=== PATIENT | male | born 1975 | race Caucasian/White ===

== ENCOUNTER 2017-10-19 21:21 | Emergency (ER) | payer OTHER ==
[2017-10-19] MEDS: Ondansetron 4 MG/2 ML SDV IVPUSH ONE (22:18)
[2017-10-19] MEDS: Sodium Chloride 0.9% 1,000 ML IV SCH (22:18)
[2017-10-19] MEDS: Famotidine 20 MG/2 ML SDV IVPUSH ONE (22:19)
[2017-10-19] MEDS: Sodium Chloride 0.9% 10 ML Syringe FLUSH PRN (22:19)
--- NOTE | 2017-10-19 23:15 | EDM.PDOC ---
ED HPI GENERAL MEDICAL PROBLEM - General Chief Complaint: Respiratory Problem Stated Complaint: STOMACH AND HEAD HURT Time Seen by Provider: 10/19/17 21:36 Source of Information: Reports: Patient, RN Notes Reviewed - History of Present Illness INITIAL COMMENTS - FREE TEXT/NARRATIVE: 42-year-old male has not been feeling well for about a week with a lot of nasal and sinus congestion. This has been primarily clear nasal drainage. He has had a fair amount of coughing with that as well, nonproductive. No obvious fever or chills with this. He then developed some mild upper abdominal discomfort yesterday that continues intermittently today. This late afternoon he became nauseated and has vomited several times. He did have one episode of diarrhea yesterday, loose stools today. No major abdominal pain or cramping at this time. No history of known ulcer disease or other prior GI problems. Headache Pain Score (Numeric/FACES): 7 Abdominal Pain Score (Numeric/FACES): 6 - Related Data Allergies Allergy/AdvReac Type Severity Reaction Status Date / Time strawberry Allergy Anaphylactic Verified 10/19/17 21:36 Shock bees Allergy Anaphylactic Uncoded 10/19/17 21:36 Shock IVP dye Allergy Hives Uncoded 10/19/17 21:36 Home Meds: Home Meds Bp Pill? 10/19/17 [History] Cephalexin 500 mg PO QID #30 capsule 10/19/17 [Rx] Cholecalciferol (Vitamin D3) [Vitamin D3] 2,000 unit PO DAILY 10/19/17 [History] Ondansetron [Zofran ODT] 4 mg PO Q6H PRN #7 tab.dis 10/19/17 [Rx] PARoxetine [Paxil] 40 mg PO DAILY 10/19/17 [History] Past Medical History Cardiovascular History: Reports: Hypertension Psychiatric History: Reports: Anxiety, Depression Social & Family History - Tobacco Use Smoking Status *Q: Never Smoker ED ROS GENERAL - Review of Systems Review Of Systems: See Below Constitutional: Denies: Fever, Chills HEENT: Reports: Rhinitis, Sinus Problem Respiratory: Reports: Cough. Denies: Shortness of Breath, Sputum Cardiovascular: Denies: Chest Pain GI/Abdominal: Reports: Abdominal Pain, Nausea, Vomiting Musculoskeletal: Denies: Shoulder Pain, Arm Pain, Back Pain Skin: Reports: No Symptoms Neurological: Reports: No Symptoms ED EXAM, GENERAL - Physical Exam Exam: See Below General Appearance: Alert, No Apparent Distress Eye Exam: Bilateral Eye: PERRL Throat/Mouth: Other Head: Atraumatic (Oral mucosa is dry) Neck: Supple Respiratory/Chest: No Respiratory Distress, Lungs Clear, Normal Breath Sounds Cardiovascular: Regular Rate, Rhythm GI/Abdominal: Soft, Non-Tender. No: Guarding, Rebound Extremities: Normal Inspection, Normal Range of Motion Neurological: Alert, Oriented, No Motor/Sensory Deficits Skin Exam: Warm, Dry, Normal Color Course - Vital Signs Last Recorded V/S: Last Vital Signs Temp 98.6 F 10/19/17 21:37 Pulse 88 10/19/17 21:37 Resp 18 10/19/17 21:37 BP 159/98 H 10/19/17 21:37 Pulse Ox 97 10/19/17 21:37 - Orders/Labs/Meds Orders: Active Orders 24 hr Category Date Time Status Peripheral IV Care [RC] . DIRECTED Care 10/19/17 22:06 Active Peripheral IV Insertion Adult [OM.PC] Stat Oth 10/19/17 22:04 Ordered Labs: Laboratory Tests 10/19/17 10/19/17 Range/Units 22:15 22:15 WBC 6.03 (4.23-9.07) K/mm3 RBC 5.07 (4.63-6.08) M/mm3 Hgb 13.9 (13.7-17.5) gm/L Hct 42.2 (40.1-51.0) % MCV 83.2 (79.0-92.2) fl MCH 27.4 (25.7-32.2) pg MCHC 32.9 (32.2-35.5) g/dl RDW Std Deviation 42.9 (35.1-43.9) fL Plt Count 164 (163-337) K/mm3 MPV 10.0 (9.4-12.3) fl Neut % (Auto) 60.7 (34.0-67.9) % Lymph % (Auto) 27.2 (21.8-53.1) % [place] % (Auto) 8.6 (5.3-12.2) % Eos % (Auto) 2.3 (0.8-7.0) Baso % (Auto) 0.7 (0.1-1.2) % Neut # (Auto) 3.66 (1.78-5.38) K/mm3 Lymph # (Auto) 1.64 (1.32-3.57) K/mm3 [place] # (Auto) 0.52 (0.30-0.82) K/mm3 Eos # (Auto) 0.14 (0.04-0.54) K/mm3 Baso # (Auto) 0.04 (0.01-0.08) K/mm3 Sodium 140 (136-145) mEq/L Potassium 3.6 (3.5-5.1) mEq/L Chloride 105 (98-107) mEq/L Carbon Dioxide 25 (21-32) mEq/L Anion Gap 13.6 (5-15) BUN 14 (7-18) mg/dL Creatinine 0.9 (0.7-1.3) mg/dL Est Cr Clr Drug Dosing 119.75 mL/min Estimated GFR (MDRD) > 60 (>60) mL/min BUN/Creatinine Ratio 15.6 (14-18) Glucose 138 H (74-106) mg/dL Calcium 9.0 (8.5-10.1) mg/dL Total Bilirubin 0.2 (0.2-1.0) mg/dL AST 94 H (15-37) U/L ALT 117 H (16-63) U/L Alkaline Phosphatase 63 (46-116) U/L Total Protein 7.2 (6.4-8.2) g/dl Albumin 3.7 (3.4-5.0) g/dl Globulin 3.5 gm/dL Albumin/Globulin Ratio 1.1 (1-2) Meds: Medications Discontinued Medications Generic Name Dose Route Start Last Admin Trade Name Freq PRN Reason Stop Dose Admin Famotidine 20 mg 10/19/17 22:05 10/19/17 22:19 Pepcid IVPUSH 10/19/17 22:06 20 mg ONETIME ONE Administration Sodium Chloride 1,000 mls @ 999 mls/hr 10/19/17 22:15 10/19/17 22:18 Normal Saline IV 999 mls/hr ONETIME SAMANTHA Administration Ondansetron HCl 4 mg 10/19/17 22:05 10/19/17 22:18 Zofran IVPUSH 10/19/17 22:06 4 mg ONETIME ONE Administration Sodium Chloride 10 ml 10/19/17 22:05 10/19/17 22:19 Saline Flush FLUSH 10 ml ASDIRECTED PRN Administration Keep Vein Open Departure - Departure Time of Disposition: 23:11 Disposition: Home, Self-Care 01 Clinical Impression: Viral upper respiratory infection Abdominal pain Qualifiers: Abdominal location: upper abdomen, unspecified Qualified Code(s): R10.10 - Upper abdominal pain, unspecified Vomiting Qualifiers: Vomiting type: unspecified Vomiting Intractability: non-intractable Nausea presence: with nausea Qualified Code(s): R11.2 - Nausea with vomiting, unspecified - Discharge Information Prescriptions: Cephalexin 500 mg PO QID #30 capsule Ondansetron [Zofran ODT] 4 mg PO Q6H PRN #7 tab.dis PRN Reason: Nausea/Vomiting Instructions: Abdominal Pain, Adult, Nausea and Vomiting, Adult, Upper Respiratory Infection, Adult, Chzn-mg-Cvop Referrals: El Hilton MD [Primary Care Provider] - Forms: ED Department Discharge Additional Instructions: Clear liquids until tomorrow afternoon as discussed, than very careful bland diet as tolerated, zofran ODT every 6-8 hours if needed for any further nausea or vomiting, the sinus congestion at this time appears to be viral, if that does not get much better within 5-7 days or if you start blowing a lot of yellow , green or other colored discharge than fill the antibiotic for cephalexin that has been provided to you at this time - My Orders Last 24 Hours: My Active Orders 10/19/17 22:04 Peripheral IV Insertion Adult [OM.PC] Stat 10/19/17 22:06 Peripheral IV Care [RC] . DIRECTED - Assessment/Plan Last 24 Hours: My Active Orders 10/19/17 22:04 Peripheral IV Insertion Adult [OM.PC] Stat 10/19/17 22:06 Peripheral IV Care [RC] . DIRECTED
== END 2017-10-19 23:36 | disposition home or self-care (01) ==
LOC: JD.ED 21:21
DX: J06.9 Acute upper respiratory infection, unspecified (principal); R10.10 Upper abdominal pain, unspecified; R11.2 Nausea with vomiting, unspecified; I10 Essential (primary) hypertension; F41.9 Anxiety disorder, unspecified; F32.9 Major depressive disorder, single episode, unspecified; Z91.018 Allergy to other foods; Z91.030 Bee allergy status; Z79.899 Other long term (current) drug therapy
CPT/HCPCS: 36415; 80053; 85025; 96361; 96374; 96375; 99284; J2405; J7040; J7050